=== PATIENT | female | born 1950 | race Caucasian/White ===

== ENCOUNTER 2018-01-09 08:27 | Day surgery (SDC) | payer MEDICARE, OTHER ==
[2018-01-09] VITALS (11 sets, daily range): BP systolic 110–156; BP diastolic 56–89; PULSE 62–71; TEMP 97.2–98.1
[~2018-01-09] VITALS: Ht 165.1 cm; Wt 90.0 kg
[~2018-01-09 08:27] MED LIST: ARIMIDEX1 MG PO; ASPIRIN 81M81 MG/TA2 PO; CALCIUM1 CAP PO; CIPRO 500MG TA500 MG PO; FLAGYL500 MG PO; FOSAMAX 10M10 MG/TAB PO; LANAMINS1 CAP PO; MIRALAX 255 GM255 GM PO; NORCO 325 MG-7.1 TAB PO; PERCOCET 325 MG1 TA2 PO; ZOFRAN 4MG T4 MG/TAB PO
[2018-01-09] MEDS ORDERED: CALCIUM 600/VIT1 CAP PO (09:36)
[2018-01-09] MEDS ORDERED: GLUCOSAMINE & C1 TE1 PO (09:37)
[2018-01-09] MEDS ORDERED: PERCOCET 325 MG1 TA2 PO (13:40)
[2018-01-10 00:16] VITALS: BP 138/81; PULSE 72; TEMP 98.2
[2018-01-10 03:41] VITALS: BP 111/62; PULSE 57; TEMP 98.5
[2018-01-10 08:40] VITALS: BP 121/65; PULSE 70; TEMP 97.8
== END 2018-01-10 10:45 | disposition home or self-care (01) ==
LOC: SDCO 08:27 → SURG 16:45 → SDCO 01-10 10:45
DX: K43.2 Incisional hernia without obstruction or gangrene (principal); Z79.899 Other long term (current) drug therapy; Z85.3 Personal history of malignant neoplasm of breast; Z80.0 Family history of malignant neoplasm of digestive organs; Z86.718 Personal history of other venous thrombosis and embolism
CPT/HCPCS: OP; C1781; J0690; J1100; J1885; J2270; J2405; J2704; J3010; J7120

== ENCOUNTER → 2019-02-11 | Outpatient (CLI) | payer MEDICARE, OTHER ==
[~2019-02-11] VITALS: Ht 165.1 cm; Wt 84.0 kg
[2019-02-11] VITALS (10 sets, daily range): BP systolic 130–173; BP diastolic 43–97; PULSE 66–74
[~2019-02-11] MED LIST changes: +CALCIUM 600/VIT1 CAP PO; +GLUCOSAMINE & C1 TE1 PO; +MULTI VITAMINS1 TAB PO; +ZESTRIL 10MG10 MG PO
--- NOTE | 2019-02-11 09:20 | NUR ---
PT BROUGHT INTO CT ROOM AND ASSISTED ONTO TABLE. MONITORING EQUIPMENT PLACED AND IMAGES TAKEN.
--- NOTE | 2019-02-11 09:40 | NUR ---
PT BROUGHT BACK TO RAD HOLDING AND REPORT GIVEN TO BEN.
== END ==
LOC: COL.RAD 08:00
DX: D30.00 Benign neoplasm of unspecified kidney (principal); N28.89 Other specified disorders of kidney and ureter